=== PATIENT | female | born 1950 | race Caucasian/White ===

== ENCOUNTER 2016-10-31 11:45 | Inpatient (IN) | payer OTHER, BC ==
[2016-10-31] MEDS ORDERED: ONDANSETRON 4 MG/2 ML VIAL IVP ONE (12:15)
[2016-10-31] MEDS ORDERED: HYDROmorphONE/DILAUDID 1 MG/ML SYR IVP ONE (12:15)
--- NOTE | 2016-10-31 12:15 | EDPHY ---
H & P Time Seen by Provider: 10/31/16 12:02 HPI/ROS: CHIEF COMPLAINT: Swollen right leg HISTORY OF PRESENT ILLNESS: 66-year-old woman has a history of breast cancer. She has had multiple lymph node dissections. She has had some redness on the distal portion of the right leg for several months. She had a mechanical fall this past week on night and since then her right leg become more red painful and swollen extending from her ankle up to her mid thigh. Pain is moderate, and radiates to the rest of the leg and associated with swelling and pain. No fever. No chest pain or shortness of breath. Worse with palpation or movement. She did not specifically injure the right leg when she fell. REVIEW OF SYSTEMS: Eye: no change in vision ENT: no sore throat Cardiac: no chest pain or syncope Pulmonary: no cough or SOB Abdomen: no vomiting, diarrhea, abdominal pain Musculoskeletal: Chronic pain from fibromyalgia on OxyContin 20 mg 4 times a day. Worsening right flank and back pain after falling on . Skin: HPI Neuro: no headache Constitutional: no fever : Frequency and urgency for several months A comprehensive 10 point review of systems is otherwise negative aside from elements mentioned in the history of present illness. PAST MEDICAL HISTORY: Breast cancer, tonsillectomy appendectomy and . Social history: Lives in [place] here visiting her daughter, tobacco smoker General Appearance: Alert and conversant, cooperative. Eyes: No scleral icterus. ENT, Mouth: Normal mucous membranes. Respiratory: Normal respiratory effort, breath sounds equal, lungs are clear to auscultation. Cardiovascular: Regular rate and rhythm. Gastrointestinal: Abdomen is soft and non tender. Neurological: Alert and oriented x3. Normally conversant. Face symmetric, normal movement and sensation in all extremities. Skin: Warmth and tenderness without blister or eschar on the right leg from the ankle to the mid thigh medially. Musculoskeletal: No bony tenderness on either leg. Right leg as 2+ edema more medially and no fluctuance. Has some right flank tenderness. No midline cervical thoracic or lumbar spine tenderness. Psychiatric: Not agitated. Emergency Department course/MDM: Dilaudid 1 mg IV. Urinalysis and ultrasound of the right leg. Admission to the hospital for IV antibiotics for cellulitis in the right leg 1315: Ultrasound per Angelina shows no DVT. Ancef 2 g IV finished infusing as of 1347, and admission for cellulitis and IV antibiotics. Results discussed with the patient who states understanding and agreement. Labs are low likelihood for pyelonephritis or sepsis. Has no midline spinal tenderness and no hematuria. Low suspicion for significant kidney injury requiring intervention. I do not think she requires a trauma service admission. Smoking Status: Current every day smoker Constitutional: Initial Vital Signs Temperature (C) 36.8 C 10/31/16 11:49 Heart Rate 116 H 10/31/16 11:49 Respiratory Rate 20 10/31/16 11:49 Blood Pressure 104/77 10/31/16 11:49 O2 Sat (%) 91 L 10/31/16 11:49 O2 Delivery Mode Room Air Allergies/Adverse Reactions: Penicillins Allergy (Verified 10/31/16 15:11) Other-Enter Comments Sulfa (Sulfonamide Antibiotics) Allergy (Verified 10/31/16 15:10) Rash Home Medications: Medication Instructions Recorded Ferrous Sulfate [Slow Fe 140 MG 140 mg PO DAILY 10/31/16 (*)] Fluconazole [Diflucan (*)] 150 mg PO MO@10/31/16 oxyCODONE HCL [Oxycontin] 20 mg PO BID@10/31/16 oxyCODONE HCL [Oxycontin] 40 mg PO HS 10/31/16 Medical Decision Making - Diagnostics Imaging Results: Imaging Impressions Extremity Venous Study 10/31/16 12:13 Impression: No evidence of deep vein thrombosis in the right lower extremity. Results communicated to Dr. Sachin Pittman at 1:14 PM. Differential Diagnosis: Differential considered including but not limited to cellulitis, fasciitis, DVT , compartment syndrome, arterial occlusion. Consult/Admit Bed Type: [place] [id number] - Data Points Laboratory Results: Laboratory Results 10/31/16 12:20 10/31/16 12:20 10/31/16 10/31/16 10/31/16 13:10 12:20 12:20 WBC RBC Hgb Hct MCV MCH MCHC RDW Plt Count MPV Neut % (Auto) Lymph % (Auto) [place] % (Auto) Eos % (Auto) Baso % (Auto) Nucleat RBC Rel Count Absolute Neuts (auto) Absolute Lymphs (auto) Absolute Monos (auto) Absolute Eos (auto) Absolute Basos (auto) Absolute Nucleated RBC Immature Gran % Immature Gran # PT 13.0 SEC SEC (12.0-15.0) INR 0.99 (0.83-1.16) APTT 29.5 SEC SEC (23.0-38.0) VBG Lactic Acid Sodium 135 mEq/L mEq/L (134-144) Potassium 4.3 mEq/L mEq/L (3.5-5.2) Chloride 98 mEq/L mEq/L (97-110) Carbon Dioxide 26 mEq/l mEq/l (22-31) Anion Gap 11 mEq/L mEq/L (8-16) BUN 11 mg/dL mg/dL (7-23) Creatinine 0.6 mg/dL mg/dL (0.6-1.0) Estimated GFR > 60 Glucose 99 mg/dL mg/dL (70-100) Calcium 9.3 mg/dL mg/dL (8.5-10.4) Total Bilirubin 0.9 mg/dL mg/dL (0.1-1.4) Urine Color YELLOW Urine Appearance HAZY Urine pH 5.0 (5.0-7.5) Ur Specific [place] 1.026 (1.002-1.030) Urine Protein NEGATIVE (NEGATIVE) Urine Ketones TRACE H (NEGATIVE) Urine Blood 1+ H (NEGATIVE) Urine Nitrate NEGATIVE (NEGATIVE) Urine Bilirubin NEGATIVE (NEGATIVE) Urine Urobilinogen NEGATIVE EU EU (0.2-1.0) Ur Leukocyte Esterase TRACE H (NEGATIVE) Urine RBC 1-3 /hpf /hpf (0-3) Urine WBC 3-5 /hpf H /hpf (0-3) Ur Epithelial Cells TRACE /lpf /lpf (NONE-1+) Urine Mucus 1+ /lpf /lpf (NONE-1+) Urine Glucose NEGATIVE (NEGATIVE) 10/31/16 10/31/16 12:20 12:20 WBC 6.54 10^3/uL 10^3/uL (3.80-9.50) RBC 4.64 10^6/uL 10^6/uL (4.18-5.33) Hgb 14.6 g/dL g/dL (12.6-16.3) Hct 44.2 % % (38.0-47.0) MCV 95.3 fL fL (81.5-99.8) MCH 31.5 pg pg (27.9-34.1) MCHC 33.0 g/dL g/dL (32.4-36.7) RDW 12.5 % % (11.5-15.2) Plt Count 276 10^3/uL 10^3/uL (150-400) MPV 9.6 fL fL (8.7-11.7) Neut % (Auto) 59.6 % % (39.3-74.2) Lymph % (Auto) 28.3 % % (15.0-45.0) [place] % (Auto) 9.5 % % (4.5-13.0) Eos % (Auto) 1.8 % % (0.6-7.6) Baso % (Auto) 0.5 % % (0.3-1.7) Nucleat RBC Rel Count 0.0 % % (0.0-0.2) Absolute Neuts (auto) 3.90 10^3/uL 10^3/uL (1.70-6.50) Absolute Lymphs (auto) 1.85 10^3/uL 10^3/uL (1.00-3.00) Absolute Monos (auto) 0.62 10^3/uL 10^3/uL (0.30-0.80) Absolute Eos (auto) 0.12 10^3/uL 10^3/uL (0.03-0.40) Absolute Basos (auto) 0.03 10^3/uL 10^3/uL (0.02-0.10) Absolute Nucleated RBC 0.00 10^3/uL 10^3/uL (0-0.01) Immature Gran % 0.3 % % (0.0-1.1) Immature Gran # 0.02 10^3/uL 10^3/uL (0.00-0.10) PT INR APTT VBG Lactic Acid 1.1 mmol/L mmol/L (0.7-2.1) Sodium Potassium Chloride Carbon Dioxide Anion Gap BUN Creatinine Estimated GFR Glucose Calcium Total Bilirubin Urine Color Urine Appearance Urine pH Ur Specific [place] Urine Protein Urine Ketones Urine Blood Urine Nitrate Urine Bilirubin Urine Urobilinogen Ur Leukocyte Esterase Urine RBC Urine WBC Ur Epithelial Cells Urine Mucus Urine Glucose Medications Given: Discontinued Medications Hydromorphone HCl (Dilaudid) 1 mg IVP EDNOW ONE Stop: 10/31/16 12:16 Last Admin: 10/31/16 12:56 Dose: 1 mg Nicotine (Nicoderm Cq) 21 mg TD EDNOW ONE Stop: 10/31/16 12:17 Last Admin: 10/31/16 12:57 Dose: 21 mg Ondansetron HCl (Zofran) 4 mg IVP EDNOW ONE Stop: 10/31/16 12:16 Last Admin: 10/31/16 12:57 Dose: 4 mg Departure - Departure Disposition: [facility] Acute Clinical Impression: Cellulitis of right leg, right flank contusion Condition: Good
[2016-10-31] MEDS ORDERED: NICOTINE 21 MG/24 HR PATCH TD ONE (12:16)
[2016-10-31 12:42] LABS: % IMMATURE GRANULYOCYTES 0.3 % (0.0-1.1); ABSOLUTE IMMATURE GRANULOCYTES 0.02 10^3/uL (0.00-0.10); ADD DIFF? NO; ADD MORPH? NO; ADD SCAN? NO; ATYPICAL LYMPHOCYTE FLAG 30 (0-99); FRAGMENT RBC FLAG 0 (0-99); HEMATOCRIT 44.2 % (38.0-47.0); HEMOGLOBIN 14.6 g/dL (12.6-16.3); LEFT SHIFT FLG 0 (0-99); LIPEMIA HEMOLYSIS FLAG 80 (0-99); MEAN CELL HEMOGLOBIN 31.5 pg (27.9-34.1); MEAN CELL VOLUME 95.3 fL (81.5-99.8); MEAN PLATELET VOLUME 9.6 fL (8.7-11.7); PLATELET CLUMPS FLAG 0 (0-99); PLATELET COUNT 276 10^3/uL (150-400); RED BLOOD CELL COUNT 4.64 10^6/uL (4.18-5.33); RED CELL DISTRIBUTION WIDTH 12.5 % (11.5-15.2)
[2016-10-31 12:51] LABS: INR 0.99 (0.83-1.16)
[2016-10-31 12:52] LABS: APTT 29.5 SEC (23.0-38.0)
[2016-10-31 12:56] LABS: ANION GAP 11 mEq/L (8-16); BILIRUBIN,TOTAL 0.9 mg/dL (0.1-1.4); CALCIUM 9.3 mg/dL (8.5-10.4); CARBON DIOXIDE 26 mEq/l (22-31); CHLORIDE 98 mEq/L (97-110); CREATININE 0.6 mg/dL (0.6-1.0); GLOMERULAR FILTRATION RATE > 60; GLUCOSE 99 mg/dL (70-100); POTASSIUM 4.3 mEq/L (3.5-5.2); SODIUM 135 mEq/L (134-144)
[2016-10-31] MEDS ORDERED: ceFAZolin 2 GM/DEXTROSE 100 ML IV ONE (13:18)
[2016-10-31] MEDS ORDERED: IBUPROFEN 200 MG TAB PO PRN (13:20)
[2016-10-31] MEDS ORDERED: ONDANSETRON DISINTEGRATING 4 MG TAB PO PRN (13:20)
[2016-10-31] MEDS ORDERED: ACETAMINOPHEN 325 MG TAB PO PRN (13:20)
[2016-10-31] MEDS ORDERED: ONDANSETRON 4 MG/2 ML VIAL IVP PRN (13:20)
[2016-10-31] MEDS ORDERED: NS 1,000 ML IV ONE (13:20)
[2016-10-31 13:24] LABS: COLOR YELLOW; LEUKOCYTE ESTERASE,URINE TRACE (NEGATIVE); NITRITE,URINE NEGATIVE (NEGATIVE)
[2016-10-31 13:29] LABS: MUCUS 1+ /lpf (NONE-1+)
[2016-10-31 13:53] VITALS: RESP 16
--- NOTE | 2016-10-31 14:59 | GHP ---
[f rep st] HISTORY AND PHYSICAL DATE OF ADMISSION: 10/31/2016 CHIEF COMPLAINT: Right back and flank pain. HISTORY OF PRESENT ILLNESS: A 66-year-old female with a history of breast cancer status post radiat ion therapy in 1999, who presents status post a mechanical fall in the bathroom. She is visiting he r daughter currently from out of state. The patient reports severe right-sided pain. Additionally notes increasing right lower extremity swelling and erythema. The patient denies any subjective fev ers and chills. Denies any headache or vision changes. Denies chest pain. Denies shortness of robert ath. Denies abdominal pain, diarrhea, nausea or vomiting. Has chronic urinary symptoms, which are unchanged. PAST MEDICAL HISTORY: 1. Fibromyalgia. 2. Breast cancer status post mastectomy, unilateral on the right, and radiation therapy. 3. Gastroesophageal reflux disease. 4. Restless legs syndrome. 5. Osteopenia. 6. History of nephrolithiasis. SOCIAL HISTORY: The patient actively smokes tobacco. Denies regular alcohol intake, illicit drugs or marijuana. FAMILY HISTORY: Positive for colon cancer. REVIEW OF SYSTEMS: A 10-point review of systems is negative, with the exception of that reported in the HPI. PHYSICAL EXAMINATION: VITAL SIGNS: Blood pressure is 124/66, heart rate 104, respiratory rate 16, 87% on room air, 36.3. GENERAL: This is an obese appearing middle-aged female in mild distress. H EENT: Notable for moist mucous membranes. Eye exam is negative for any icterus. CARDIAC: The pat ient has a regular rate and rhythm. PULMONARY: Clear to auscultation bilaterally. GASTROINTESTINA L: Positive bowel sounds. The abdomen is obese and soft. MUSCULOSKELETAL: The patient has asymme tric right-sided lower extremity edema. SKIN: Notable for erythema and warmth of the right lower e xtremity with signs of chronic venous stasis. Erythema extends from the ankle, the medial aspect of the leg to the mid thigh. No fluctuance or purulence is appreciated. NEUROLOGIC: She is alert an d oriented x3. PSYCHIATRIC: She is anxious on interview and examination. DATA: White count 6.5. Creatinine 0.6. Urinalysis shows 3-5 white blood cells, 1-3 red, trace ket ones. Sodium 135, potassium 4.3. IMAGING: Ultrasound of the lower extremity, which I reviewed, is negative for DVT. ASSESSMENT AND PLAN: This is a 66-year-old female presenting status post fall with right back pain and right lower extremity redness. 1. Acute cellulitis of the right lower extremity. It does not appear to be associated with her mec hanical fall. It sounds, by history, that the patient has had a smoldering lower extremity skin inf ection that acutely worsened. Ultrasound of the lower extremity is negative for DVT. Will treat wi th IV cefazolin, oral ibuprofen and p.r.n. oral pain medications as needed. 2. Acute right back/flank pain. The patient did fall on this side, is point tender on my examinati on in the inferior rib margin. Will order rib film to begin with. If this is negative, move on to deeper imaging. Again, treat with p.r.n. p.o. pain medications. 3. Tachycardia. The patient is regular on exam. Suspect this is likely related to anxiety and vinny n. Will hydrate the patient with normal saline, as there are mild ketones in her urine, to reverse any hypovolemia and then follow heart rates post treatment of her pain. 4. Acute hypoxic respiratory failure. The patient has oxygen saturations at 87%. Suspect based on the examination that this may be secondary to splinting and atelectasis from her right back/flank p ain. Will order rib films with PA lateral chest x-ray to rule out any acute intrapulmonic process. Again, will treat her pain. Encourage IS and proper body positioning for good respiratory techniqu e. 5. Fibromyalgia. The patient is not entirely clear on the medication she uses for pain. Will wait for pharmacy to reconcile prior to initiating narcotics. 6. Gastroesophageal reflux disease. The patient does not have active complaints. Again, will cont inue her home medications once reconciled. 7. Prophylaxis with Lovenox. 8. Diet regular. DISPOSITION: I expect greater than 2 midnights. The patient is presenting with cellulitis requiring IV antibiotics, and will require additional diag nostics for workup of her right flank pain. I have discussed the case with the emergency room physician. The patient will be triaged to the [facility] floor for care. /[id number]/MODL
--- NOTE | 2016-10-31 15:12 | ASMTCMCOM ---
CM Note CM Note Notes: Patient admitted for right leg cellulitis. Patient had a mechanical fall today. Patient is visiting her daughter Radha from [place]. Radha is requesting resources for patient to follow up with regarding alcohol use and her chronic pain \T\ narcotic dependency (per daughter patient has multip le pain medication prescriptions from various providers in [place]). Overall discharge needs unknown at this time. Case Management to follow up with patient and family. Date Signed: 10/31/2016 03:11 PM Electronically Signed By:Nathaly Atkins
[2016-10-31] MEDS ORDERED: IOPAMIDOL (ISOVUE-300) 100 ML BTL ONE (16:00)
[2016-10-31] MEDS: ceFAZolin 2 GM/DEXTROSE 100 ML IV SCH ×2 (18:03→20:54)
[2016-10-31] MEDS: OXYCODONE/APAP 5/325 TAB PO PRN (20:55)
[2016-11-01 01:03] LABS: PHENCYCLIDINE URINE BCH < 6 ng/ml (NEGATIVE); PHENCYCLIDINE URINE BCH NEGATIVE (NEGATIVE); TETRAHYDROCANNABINOL URINE < 5 ng/mL (NEGATIVE); TETRAHYDROCANNABINOL URINE NEGATIVE (NEGATIVE)
[2016-11-01] MEDS: OXYCODONE/APAP 5/325 TAB PO PRN ×2 (02:21→08:24)
[2016-11-01] MEDS: ceFAZolin 2 GM/DEXTROSE 100 ML IV SCH (06:00)
[2016-11-01 07:55] VITALS: BP 124/80; PULSE 75; TEMP 97.8; O2SAT 95
[2016-11-01] MEDS ORDERED: ENOXAPARIN 40 MG/0.4 ML SYR SC SCH (09:00)
[2016-11-01] MEDS ORDERED: FERROUS SULFATE 140 MG TAB.ER PO SCH (09:00)
[2016-11-01] MEDS ORDERED: NICOTINE 21 MG/24 HR PATCH TD SCH (09:00)
--- NOTE | 2016-11-01 09:22 | WOCRNPDOC ---
[facility] Advanced Assessment Note - Skin Integrity Problem, Advanced Assess Right Third Finger Dressing Type: Mepilex Border Ag+ Dressing Description: Clean/Dry, Intact Exudate Amount: None Sara Wound Tissue: Erythema Sara Wound Swelling: Mild Wound Bed Constitution: Dried Exudate, Adhered Slough Site Measurement - Head-to-Toe Length X Width X Depth (cm): 0.5x0.4x0.1 Skin Integrity Problem Comment: Stalled wound due to dryness. Advised KIM Solorzano to moisturize with silvasorb and cover with allevyn life or mepilex dressing. Reported to Katrina ALVAREZ. Did not find wounds on right lower leg that need advanced wound care. Wound care will sign off.
--- NOTE | 2016-11-01 13:09 | ASMTCMCOM ---
CM Note CM Note Notes: Patient has been discharged and will return to her daughter"s home. Asked patient about her pain needs and she is involved with an oncology pain clinic through [facility] in [place] and feels this is adequate for her needs. Patient plans to fly back to [place] on Tuesday. Date Signed: 11/01/2016 01:08 PM Electronically Signed By:Kavita Richard
--- NOTE | 2016-11-01 16:10 | GDS ---
[f rep st] DISCHARGE SUMMARY DISCHARGE DIAGNOSES: Include. 1. Acute right lower extremity cellulitis. 2. Mechanical fall with right flank bruising. 3. Chronic pain with continuous narcotic dependency. 4. Breast cancer status post mastectomy and radiation therapy. HISTORY OF PRESENT ILLNESS: A 66-year-old female with a history of breast cancer status post mastec marcela and radiation, who is [place] from [place] state and had a mechanical fall into the bath tub hi tting the right side of her chest and flank. The patient presented to address pain and was found to have a right lower extremity cellulitis as well. CONSULTS ON THIS PATIENT: None. PROCEDURES: On 10/31/2016, patient had a CT of her chest and abdomen that showed no traumatic injur y to her kidney or right flank. HOSPITAL COURSE BY ISSUE: 1. Acute right lower extremity cellulitis. Patient had an ultrasound which was negative for DVT. Initiated on IV cefazolin and transitioned to oral doxycycline. She will complete a 10-day course o f doxycycline. Follow with her primary care provider in the outpatient setting. 2. Right side pain status post fall. Did rule out traumatic rib injury and/or internal injuries wi th both plain films and CT imaging. Encouraged the patient heat packs, ice and antiinflammatories. MEDICATIONS AT THE TIME OF DISPOSITION: Please reference med rec printed on 11/01/2016, #10 day cou rse of doxycycline. FOLLOWUP APPOINTMENTS: Include with her primary care provider for re-evaluation of her cellulitis. PENDING STUDIES: At the time of this dictation, include blood cultures which are pending, no growth to date at the time of disposition. I spent greater than 30 minutes in the planning and coordination of this discharge. /[id number]/MODL
--- NOTE | 2016-11-01 17:06 | ASDISCHSUM ---
Discharge Information Plan Status:Home with No Needs Medically Cleared to Leave:11/01/2016 Discharge Date:11/01/2016 03:49 PM CM D/C Disposition:Home, Routine, Self-Care ADT D/C Disposition:Home, Routine, Self-Care Projected Discharge Date:11/01/2016 03:00 PM Transportation at D/C:Family Discharge Delay Reason: Follow-Up Date:11/01/2016 03:00 PM Discharge Slot: Final Diagnosis:Right back and flank pain Placement Information Patient Contact Information Contact Name:WARREN Relationship:Daughter Address: Work Phone: City: [facility] Phone: State/[employer] Code: Email: Financial Information Financial Class: Primary Plan Desc:MEDICARE INPATIENT Primary Plan Number:[id number] Secondary Plan Desc: OUT OF STATE INDEMNITY Secondary Plan Number:[id number] Assessment Information [facility] CM Progress Note CM Note CM Note Notes: Patient admitted for right leg cellulitis. Patient had a mechanical fall today. Patient is visiting her daughter Radha from [place]. Radha is requesting resources for patient to follow up with regarding alcohol use and her chronic pain \\T\\ narcotic dependency (per daughter patient has multip le pain medication prescriptions from various providers in [place]). Overall discharge needs unknown at this time. Case Management to follow up with patient and family. Date Signed: 10/31/2016 03:11 PM Electronically Signed By:Nathaly Atkins [facility] CM Progress Note CM Note CM Note Notes: Patient has been discharged and will return to her daughter"s home. Asked patient about her pain needs and she is involved with an oncology pain clinic through [facility] in [place] and feels this is adequate for her needs. Patient plans to fly back to [place] on Tuesday. Date Signed: 11/01/2016 01:08 PM Electronically Signed By:Kavita Richard Intervention Information
== END 2016-11-01 15:49 | disposition home or self-care (01) | DRG 603 ==
LOC: F3N 14:05
PROVIDERS: ADMIT Hospitalist; ATTEND Hospitalist
DX: L03.115 Cellulitis of right lower limb (principal); S30.1XXA Contusion of abdominal wall, initial encounter; W19.XXXA Unspecified fall, initial encounter; Y92.012 Bathroom of single-family (private) house as the place of occurrence of the external cause; M79.7 Fibromyalgia; G89.29 Other chronic pain; F11.20 Opioid dependence, uncomplicated; R35.0 Frequency of micturition; R39.15 Urgency of urination; K21.9 Gastro-esophageal reflux disease without esophagitis; M85.80 Other specified disorders of bone density and structure, unspecified site; F17.210 Nicotine dependence, cigarettes, uncomplicated; Z92.3 Personal history of irradiation; Z85.3 Personal history of malignant neoplasm of breast; Z87.442 Personal history of urinary calculi
CPT/HCPCS: 80307; 96374; 97161-GP; G0480; G8978-GP-CI; G8979-GP-CI; G8980-GP-CI; J0690; J1170; J1650; J2405; Q9967